=== PATIENT | female | born 1965 | race Caucasian/White ===

== ENCOUNTER → 2017-03-23 | Outpatient (CLI) | payer OTHER ==
[~2017-03-23] MED LIST: ALPR-138; ESTR1TAB PO
--- NOTE | 2017-03-24 16:21 | EKG ---
Date Performed: 03/23/2017 Time Performed: 13:36:42 PTAGE: 51 years EKG: Sinus rhythm . Poor R wave progression - probable normal variant Since previous tracing, no significant change not ed Borderline ECG PREVIOUS TRACING : 11/06/2015 15.09 DOCTOR: Dora Rosas Interpretating Date/Time 03/24/2017 16:20:35
== END ==
LOC: HCAV 12:34
PROVIDERS: ATTEND Orthopaedic Surgery Orthopaedic Surgery of the Spine
DX: Z01.810 Encounter for preprocedural cardiovascular examination (principal)
CPT/HCPCS: 93005

== ENCOUNTER → 2017-03-28 | Day surgery (SDC) | payer OTHER ==
[~2017-03-28] MED LIST changes: +ACETAMINOPHEN/HYDROcodone 325 MG/5 MG TAB ONE; +KETOROLAC TROMETHAMINE 30 MG/ML (IVP) VIAL IV PUSH ONE; +LACTATED RINGER'S 1000 ML INJ 1,000 ML ONE; +MEPERIDINE HCL 25 MG/ML VIAL ONE; +MIDAZOLAM HCL 2 MG/2 ML VIAL ONE; +MORPHINE SULFATE 4 MG/ML INJ ONE; +ONDANSETRON HCL 4 MG/2 ML VIAL IV PUSH ONE; +PROPOFOL 200 MG/20 ML AMP IV ONE; +TRIAMCINOLONE ACETONIDE 40 MG/ML VIAL ONE; +ceFAZolin INJ 1,000 MG VIAL ONE
--- NOTE | 2017-03-28 14:34 | TN ---
cc: MATT ROTH M.D. DATE OF SURGERY: March 28, 2017 PREOPERATIVE DIAGNOSIS Right knee internal derangement. POSTOPERATIVE DIAGNOSIS Right knee complex tear lateral meniscus, moderate osteoarthritis lateral compartment. PROCEDURE Right knee arthroscopic surgery, subtotal lateral meniscectomy. SURGEON Jayde Roth MD ASSESSMENT Staff SPECIMENS None. ESTIMATED BLOOD LOSS None. COMPLICATIONS None ANESTHESIA General DRAINS: drain none TOURNIQUET TIME 14-minute 250 mmHg CONDITION: condition stable PLAN Activity as per order. PROCEDURE: The patient brought operating room had satisfactory anesthesia by Dr. Garcia Department of Anesthesia. The right lower extremity was prepped and draped in usual sterile manner. The extremity was exsanguinated elevation and Isacc wrap, the tourniquet plated 250 mmHg. Routine anterolateral anterior medial portal made. Induction arthroscopic instrument performed. The patellofemoral compartment showed a mild degree of synovitis. The knee was inflated with sterile Ringer's lactate solution. The patient found to have normal articular surfaces involving patellofemoral compartment. Medial on compartment showed no mild degenerative involving, medial meniscus and no evidence of medial meniscus tear. 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 Lateral compartment revealed moderate degree of chondromalacia around the lateral tibial plateau and the lateral femoral condyle. There was no exposed bone. The patient was found to have a complex degenerative tear involving the lateral meniscus, posteriorly, laterally and anteriorly. Subtotal lateral meniscectomy performed using meniscal rongeurs and mi. Chondroplasty shaver, fixed surface also performed using the shaver. The knee was irrigated with copious amounts of Ringer's lactate solution. Wound itself was dry. The arthroscopic instruments were removed the incision was closed with multiple 3-0 nylon. The knee was injected with 1 cc Kenalog 40. Sterile dressings were applied. The patient tolerated the procedure well and returned to the Recovery Room stable and satisfactory condition. MD SHANDRA Conklin/deanna /2:10 PM /2:18 PM
== END | disposition home or self-care (01) ==
LOC: ESDC 11:39
PROVIDERS: ATTEND Orthopaedic Surgery Orthopaedic Surgery of the Spine
DX: S83.271A Complex tear of lateral meniscus, current injury, right knee, initial encounter (principal); M17.11 Unilateral primary osteoarthritis, right knee
CPT/HCPCS: 01400; 29881; J0690; J1885; J2175; J2250; J2270; J2405; J3010; J3301; J7120